=== PATIENT | male | born 1950 | race Caucasian/White ===

== ENCOUNTER 2016-02-29 16:34 | Emergency (ER) | payer MEDICARE, OTHER ==
--- NOTE | 2016-02-29 16:45 | Emergency Department Record ---
History of Present Illness - General Chief Complaint: Laceration(s) Stated Complaint: LACERATION TO THUMB ON RT HAND Time Seen by Provider: 02/29/16 16:41 Source: Patient Mode of Arrival: Ambulatory Limitations: No limitations - History of Present Illness Initial Commments: 66 yo male presents after injring his right thumb in a wood splitter. He got it caught between the splinter and a wood block. He is right handed. He is on Coumadin for a blood clot. His Tetanus is up to date. PCP is Dr. Meza in [place]. -: Minutes(s) Extremity Location: Right: Hand Place: Home Context: Accidental Associated Symptoms: None Treatments Prior to Arrival: Bandage - [place] Coma Scale Eye Response: (4) Open spontaneously Motor Response: (6) Obeys commands Verbal Response: (5) Oriented [place] Total: 15 - Related Data Previous Rx's Medication Instructions Recorded Warfarin Sodium [Coumadin] 4 mg PO QHS #30 tab 08/29/15 Cephalexin [Keflex] 500 mg PO TID #30 cap 02/29/16 Hydrocodone/Acetaminophen [[place] 1 tab PO Q8H PRN #15 tab 02/29/16 5mg/325mg] Allergies Allergy/AdvReac Type Severity Reaction Status Date / Time Penicillins Allergy Unknown "it ain't Verified 08/25/15 20:14 good." Review of Systems Constitutional: Denies: Chills, Fever, Malaise, Weakness Eyes: Denies: Eye discharge ENT: Denies: Congestion, Throat pain Respiratory: Denies: Cough Cardiovascular: Denies: Chest pain, Palpitations, Syncope Endocrine: Denies: Fatigue Gastrointestinal: Denies: Abdominal pain, Diarrhea, Nausea, Vomiting Genitourinary: Denies: Dysuria, Frequency, Hematuria Musculoskeletal: Reports: Arthralgia, Joint swelling Skin: Reports: Bruising. Denies: Change in color Neurological: Denies: Headache Psychiatric: Denies: Anxiety Hematological/Lymphatic: Reports: Blood Clots. Denies: Easy bleeding, Easy bruising Past Medical History - SOCIAL HISTORY Smoking Status: Current every day smoker Alcohol Use Comment: liquor and beer/daily - RESPIRATORY Hx Respiratory Disorders: Yes Hx Bronchitis: Yes (07/2015) Hx Pulmonary Embolism: Yes (08/2015) - CARDIOVASCULAR Hx Cardio Disorders: Yes Hx Hypertension: Yes (no meds) Hx Irregular Heartbeat: Yes (neg. cardiac work-up) - NEURO Hx Neuro Disorders: No - GI Hx GI Disorders: No Comment:: + occult blood - Hx Genitourinary Disorders: No - ENDOCRINE Hx Endocrine Disorders: No - MUSCULOSKELETAL Hx Musculoskeletal Disorders: Yes Hx Arthritis: Yes - PSYCH Hx Psych Problems: No - HEMATOLOGY/ONCOLOGY Hx Hematology/Oncology Disorders: No Family Medical History Hx Cancer: Brother/Sister Hx HTN: Father, Mother Hx Resp Disorders: Father Hx Stroke: Brother/Sister Physical Exam - General General Appearance: Alert, Oriented x3, Cooperative, No acute distress Limitations: No limitations - Head Head exam: Atraumatic, Normocephalic, Normal inspection - Eye Eye exam: Normal appearance. negative: Conjunctival injection, Scleral icterus - ENT ENT exam: Normal exam Ear exam: Normal external inspection Nasal Exam: Normal inspection Mouth exam: Normal external inspection Teeth exam: Normal inspection Throat exam: Normal inspection - Neck Neck exam: Normal inspection - Respiratory Respiratory exam: Normal lung sounds bilaterally. negative: Respiratory distress - Cardiovascular Cardiovascular Exam: Regular rate, Normal rhythm, Normal heart sounds - Rectal Rectal exam: Deferred - exam: Deferred - Extremities Extremities exam: Full ROM (No limitation of flexion or extension, full strength through ROM) Image of Finger Tip: 1 - 12mm laceration, no bone, tendon, of FB visible 2 - 2.5cm laceration in eliptical shape, no bone, FB or visible tendon. - Back Back exam: Reports: Normal inspection - Neurological Neurological exam: Alert, Normal gait, Oriented X3 - Psychiatric Psychiatric exam: Normal affect, Normal mood. negative: Agitated, Anxious - Skin Skin exam: Dry, Intact, Normal color, Warm Course - Reevaluation(s) Reevaluation #1: The thumb was cleaned and dressed XR ordered Digital Block with Lidocaine 1% plain with Bupivacaine 50:50 mix 4ml. 02/29/16 16:50 Reevaluation #2: I SW DR Mai of [facility] We discussed the wound and Fx He recommends thorough cleaning, closure and follow up Thursday in the office 02/29/16 17:12 Reevaluation #3: The wounds again were copiously irrigated with pressure NS after a Betadine Prep No tendon, bone or FB were visible in a bloodless field 12mm linear laceration was closed with 7 4-0 Ethilon suture with good would approximation The eliptical 2.5 cm laceration was closed with 9 4-0 Ethilon suture with good wound approximation We again discussed the increased risks of infection and poor healing of an injury of this type He is to call Thursday for the first available appointment with Dr Ferris He will be on Keflex He is to take his XR to his visit 02/29/16 17:47 Reevaluation #4: INR is 2.09 02/29/16 17:54 Medical Decision Making - Lab Data Result diagrams: 02/29/16 16:42 02/29/16 16:42 Disposition Disposition: Discharge Clinical Impression: Laceration of thumb Qualifiers: Encounter type: initial encounter Laterality: right Qualified Code(s): S61.011A - Laceration without foreign body of right thumb without damage to nail , initial encounter Thumb fracture Qualifiers: Encounter type: initial encounter Fracture type: open Phalanx: proximal Fracture alignment: nondisplaced Laterality: right Qualified Code(s): S62.514B - Nondisplaced fracture of proximal phalanx of right thumb, initial encounter for open fracture Disposition: Home, Self-Care Condition: (1) Good Instructions: Laceration (ED) Additional Instructions: Return immediately if you have uncontrolled pain, pus, fever or any new concerns Call Dr Ferris on Thursday at [phone] [address] [place] [address] You will need to recheck your INR while on Coumadin first of the week Prescriptions: Cephalexin [Keflex] 500 mg PO TID #30 cap Hydrocodone/Acetaminophen [[place] 5mg/325mg] 1 tab PO Q8H PRN #15 tab PRN Reason: Pain - General Forms: Patient Portal Access Time of Disposition: 17:52
[2016-02-29 17:20] LABS: BASO % 0.7 % (0-6); EOS % 9.5 % (0-6); HEMATOCRIT 41.2 % (42.0-52.0); HEMOGLOBIN 14.4 gm/dl (14.0-18.0); LYMPH % 29.5 % (16-45); MEAN PLATELET VOLUME 9.7 fl (7.4-10.4); MONO % 10.3 % (0-9); PLATELET COUNT 212 K/uL (130-400); RED CELL DISTRIBUTION WIDTH 13.6 % (11.5-14.5); WHITE BLOOD COUNT W/O DIFF 7.6 K/uL (4.2-12.2)
[2016-02-29 17:31] LABS: ANION GAP 17.5 (7-16); BLOOD UREA NITROGEN 13 mg/dL (9-20); CARBON DIOXIDE 21.5 mmol/L (22-30); CREATININE 0.9 mg/dL (0.66-1.25); EST GLOMERULAR FILTRATION RATE > 60 ml/min; GLUCOSE,RANDOM 91 mg/dL (70-110); INR 2.09; PROTHROMBIN TIME (PATIENT) 23.6 SECONDS (9.5-12.1)
[2016-02-29] MEDS: CEPHALEXIN 500 MG CAPSULE PO STA (18:02)
--- NOTE | 2016-03-03 11:00 | RADIOLOGY REPORT ---
EXAM: RIGHT THUMB, FOUR VIEWS HISTORY: TRAUMA, STUCK RIGHT THUMB BETWEEN WOOD AND LOG SPLITTER. RIGHT THUMB PAIN. TECHNIQUE: Four views of the right thumb were obtained. Comparison: None. Encounter: Initial. FINDINGS: Acute nondisplaced fracture involving the proximal aspect of the right first distal phalanx. No radiodense foreign body. IMPRESSION: ACUTE NONDISPLACED TRANSVERSE FRACTURE OF THE PROXIMAL RIGHT FIRST PROXIMAL PHALANX. JOB NUMBER: [id number] MTDD
== END 2016-02-29 18:09 | disposition home or self-care (01) ==
LOC: ER 16:34
DX: S61.011A Laceration without foreign body of right thumb without damage to nail, initial encounter (principal); S62.514A Nondisplaced fracture of proximal phalanx of right thumb, initial encounter for closed fracture; W31.89XA Contact with other specified machinery, initial encounter; Y93.H9 Activity, other involving exterior property and land maintenance, building and construction; Y92.009 Unspecified place in unspecified non-institutional (private) residence as the place of occurrence of the external cause; I10 Essential (primary) hypertension; F17.210 Nicotine dependence, cigarettes, uncomplicated; Z86.711 Personal history of pulmonary embolism; Z79.01 Long term (current) use of anticoagulants
CPT/HCPCS: 12002; 80048; 85025; 85610; 99283; 99284

== ENCOUNTER 2017-07-29 23:39 | Emergency (ER) | payer MEDICARE, OTHER ==
[2017-07-30 00:06] LABS: BASO % 0.8 % (0-6); EOS % 9.6 % (0-6); GRAN % 31.5 % (47-80); HEMATOCRIT 43.9 % (42.0-52.0); LYMPH % 45.2 % (16-45); MEAN CELL VOLUME 102.6 fl (81-97); MEAN CORPUSCULAR HGB CONC 34.2 g/dl (32-36); MEAN PLATELET VOLUME 9.4 fl (7.4-10.4); MONO % 12.9 % (0-9); PLATELET COUNT 222 K/uL (130-400); RED BLOOD COUNT 4.28 M/uL (4.40-5.70); RED CELL DISTRIBUTION WIDTH 14.8 % (11.5-14.5); WHITE BLOOD COUNT W/O DIFF 6.1 K/uL (4.2-12.2)
--- NOTE | 2017-07-30 00:08 | Emergency Department Record ---
History of Present Illness - General Chief complaint: Lower Extremity Pain Stated complaint: RIGHT SIDE NUMBNESS Time Seen by Provider: 07/29/17 23:47 Source: Patient, Family Mode of Arrival: Ambulatory Limitations: No limitations - History of Present Illness Initial comments: pt came in c/o r arm and leg numbness for an unclear amount of time but probably more then 4-6 hours. pt had a similar episode a few weeks ago that spontaneously resolved. he denies other symptoms. his states he was dragging his foot with the episode a few weeks ago. MD Complaint: Other Onset/Timin -: Hour(s) Location: Right Consistency: Constant Improves with: Nothing Worsens with: Nothing Associated Symptoms: Denies other symptoms - Related Data Previous Rx's Medication Instructions Recorded Warfarin Sodium [Coumadin] 4 mg PO QHS #30 tab 08/29/15 Allergies Allergy/AdvReac Type Severity Reaction Status Date / Time Penicillins Allergy Unknown "it ain't Verified 08/25/15 20:14 good." Travel Screening - Travel/Exposure Within Last 30 Days Have you traveled within the last 30 days?: No - Travel/Exposure Within Last Year Have you traveled outside the [place] in the last year?: No - Additonal Travel Details Have you been exposed to anyone with a communicable illness?: No - Travel Symptoms Symptom Screening: None Review of Systems Reviewed: No additional complaints except as noted below Constitutional: Reports: As per HPI. Denies: Chills, Fever, Malaise, Night sweats, Weakness, Weight change Eyes: Reports: As per HPI. Denies: Eye discharge, Eye pain, Photophobia, Vision change ENT: Reports: As per HPI. Denies: Congestion, Dental pain, Ear pain, Epistaxis , Hearing loss, Throat pain Respiratory: Reports: As per HPI. Denies: Cough, Dyspnea, Hemoptysis, Stridor, Wheezes Cardiovascular: Reports: As per HPI. Denies: Arrhythmia, Chest pain, Dyspnea on exertion, Edema, Murmurs, Orthopnea, Palpitations, Paroxysmal nocturnal dyspnea, Rheumatic Fever, Syncope Endocrine: Reports: As per HPI. Denies: Fatigue, Heat or cold intolerance, Polydipsia, Polyuria Gastrointestinal: Reports: As per HPI. Denies: Abdominal pain, Constipation, Diarrhea, Hematemesis, Hematochezia, Melena, Nausea, Vomiting Genitourinary: Reports: As per HPI. Denies: Dysuria, Frequency, Hematuria, Incontinence, Retention, Testicular pain, Testicular mass, Urgency Musculoskeletal: Reports: As per HPI. Denies: Arthralgia, Back pain, Gout, Joint swelling, Myalgia, Neck pain Skin: Reports: As per HPI. Denies: Bruising, Change in color, Change in hair/ nails, Lesions, Pruritus, Rash Neurological: Reports: As per HPI, Abnormal gait, Numbness, Paresthesias, Tingling. Denies: Confusion, Headache, Seizure, Tremors, Vertigo, Weakness Psychiatric: Reports: As per HPI. Denies: Anxiety, Auditory hallucinations, Depression, Homicidal thoughts, Suicidal thoughts, Visual hallucinations Hematological/Lymphatic: Reports: As per HPI. Denies: Anemia, Blood Clots, Easy bleeding, Easy bruising, Swollen glands Past Medical History - SOCIAL HISTORY Smoking Status: Current every day smoker Alcohol Use: Heavy Alcohol Use Comment: pint liquor/day Drug Use: None - RESPIRATORY Hx Respiratory Disorders: Yes Hx Bronchitis: Yes (07/2015) Hx Pulmonary Embolism: Yes (08/2015) - CARDIOVASCULAR Hx Cardio Disorders: Yes Hx Hypertension: Yes (no meds) Hx Irregular Heartbeat: Yes (neg. cardiac work-up) Comment:: takes coumadin for PE hx - NEURO Hx Neuro Disorders: No - GI Hx GI Disorders: No Comment:: + occult blood - Hx Genitourinary Disorders: No - ENDOCRINE Hx Endocrine Disorders: No - MUSCULOSKELETAL Hx Musculoskeletal Disorders: Yes Hx Arthritis: Yes - PSYCH Hx Psych Problems: No - HEMATOLOGY/ONCOLOGY Hx Hematology/Oncology Disorders: No Family Medical History Any Significant Family History?: Yes Hx Cancer: Brother/Sister Hx HTN: Father, Mother Hx Resp Disorders: Father Hx Stroke: Brother/Sister Physical Exam - General General Appearance: Alert, Oriented x3, Cooperative, Mild distress - Head Head exam: Normal inspection - Eye Eye exam: Normal appearance, PERRL, EOMI Pupils: Normal accommodation - ENT ENT exam: Normal exam, Mucous membranes moist, Normal external ear exam, Normal orophraynx Ear exam: Normal external inspection. negative: External canal tenderness Nasal Exam: Normal inspection. negative: Discharge, Sinus tenderness Mouth exam: Normal external inspection, Tongue normal Teeth exam: Normal inspection. negative: Dental caries Throat exam: Normal inspection. negative: Tonsillar erythema, Tonsillar exudate - Neck Neck exam: Normal inspection, Full ROM. negative: Tenderness - Respiratory Respiratory exam: Normal lung sounds bilaterally. negative: Respiratory distress - Cardiovascular Cardiovascular Exam: Normal rhythm, Normal heart sounds, Tachycardia - GI/Abdominal GI/Abdominal exam: Soft, Normal bowel sounds. negative: Tenderness - Rectal Rectal exam: Deferred - exam: Deferred - Extremities Extremities exam: Normal inspection, Full ROM, Normal capillary refill, Tenderness (r foot w drainage) - Back Back exam: Reports: Normal inspection, Full ROM. Denies: Muscle spasm, Rash noted, Tenderness - Neurological Neurological exam: Abnormal gait, Alert, CN II-XII intact, Motor sensory deficit , Oriented X3, Other (numbness of right arm and leg) - Psychiatric Psychiatric exam: Normal affect, Normal mood - Skin Skin exam: Dry, Intact, Normal color, Warm Course Vital Signs 07/29/17 23:44 Temperature 98 F Pulse Rate [ 107 H Pulse Ox Probe] Respiratory 24 Rate Blood Pressure 115/91 [Left Arm] Pulse Ox 93 L - Reevaluation(s) Reevaluation #1: 07/30/17 00:59 pt is not a good tpa candidate as time of onstart is unclear, pt has high inr and high alcohol and is only stroke scale of 1-2 Medical Decision Making - Lab Data Result diagrams: 07/30/17 00:04 07/30/17 00:04 Disposition Disposition: Transfer Clinical Impression: Stroke determined by clinical assessment Disposition: Acute Care Hospital Transfer Transfer To: [facility] Reason For Transfer: stroke team Accepting Physician: tammy lyman Time Discussed w/Accepting Physician: 00:58 Condition: (3) Guarded Forms: Patient Portal Access Quality - Quality Measures Quality Measures: N/A - Blood Pressure Screening Does Patient Have Any of the Following: No Blood Pressure Classification: Pre-Hypertensive BP Reading Systolic Measurement: 129 Diastolic Measurement: 82 Screening for High Blood Pressure: < Pre-Hypertensive BP, F/U Documented > [ G8950] Pre-Hypertensive Follow-up Interventions: Referral to alternative/primary care provider. Stroke Assessment - NIH Stroke Scale 1a. Level of Consciousness: (0) Alert 1b. LOC Questions: (0) Answers Correctly 1c. LOC Commands: (0) Performs Tasks Correctly 2. Best Gaze: (0) Normal 3. Visual: (0) No Visual Loss 4. Facial Palsy: (0) Normal Symmetrical Movement 5a. Motor Arm Left: (0) No Drift 5b. Motor Arm Right: (0) No Drift 6a. Motor Leg Left: (0) No Drift 6b. Motor Leg Right: (0) No Drift 7. Limb Ataxia: (1) Present 1 Limb 8. Sensory: (1) Mild/Moderate Sensory Loss 9. Best Language: (0) No Aphasia 10. Dysarthria: (0) Normal
[2017-07-30 00:18] LABS: BLOOD UREA NITROGEN 9 mg/dL (8-23); EST GLOMERULAR FILTRATION RATE > 60 mL/min
[2017-07-30 00:19] LABS: TOTAL PROTEIN 6.7 g/dL (6.6-8.7)
[2017-07-30 00:19] LABS: INR 3.9; PARTIAL THROMBOPLASTIN TIME 49.4 SECONDS (24.5-39.1)
[2017-07-30 00:20] LABS: PROTHROMBIN TIME (PATIENT) 42.2 SECONDS (9.5-12.1)
[2017-07-30 00:20] LABS: ALCOHOL 0.319 g/dL (0-0.010)
[2017-07-30 00:21] LABS: GLUCOSE,RANDOM 118 mg/dL (74-109)
[2017-07-30 00:24] LABS: ALB/GLOB RATIO 1.5 (1.1-1.8); ALKALINE PHOSPHATASE 64 U/L (40-129); ALT/SGPT 62 U/L (<41); AST/SGOT 96 U/L (10.0-50.0)
[2017-07-30] MEDS ORDERED: MVI, ADULT NO.4 WITH VIT K 10 ML, THIAMINE HCL IV 100 MG in 0.9 % SODIUM CHLORIDE 1000M... IV SCH ×3 (01:00)
--- NOTE | 2017-07-31 09:41 | RADIOLOGY REPORT ---
EXAM: LEFT FOOT HISTORY: PAIN. TECHNIQUE: Four views of the left foot were obtained. Comparison: None. FINDINGS: Mild degenerative change of the great toe. Tiny calcaneal spurs. Negative for fracture or dislocation. The soft tissues are unremarkable. IMPRESSION: NO ACUTE OSSEOUS ABNORMALITY. JOB NUMBER: [id number] MTDD
--- NOTE | 2017-07-31 09:49 | CT SCAN REPORT ---
EXAM: CT OF THE BRAIN HISTORY: RIGHT SIDED NUMBNESS. TECHNIQUE: CT of the brain without contrast was obtained. Comparison: None. FINDINGS: The globes are intact. The paranasal sinuses and mastoid air cells are unremarkable. There is no displaced or depressed skull fracture. There is no intra or extraaxial hemorrhage. CT is limited for the evaluation of acute infarct. There is no CT evidence for large or territorial acute infarct. No mass or midline shift. The mane white matter differentiation is preserved. Mild diffuse atrophy. IMPRESSION: MILD DIFFUSE ATROPHY. NO ACUTE INTRACRANIAL ABNORMALITY. JOB NUMBER: [id number] MTDD
== END 2017-07-30 01:26 | disposition short-term general hospital (02) ==
LOC: ER 23:39
DX: I63.9 Cerebral infarction, unspecified (principal); R20.0 Anesthesia of skin; R26.89 Other abnormalities of gait and mobility; R79.1 Abnormal coagulation profile; I10 Essential (primary) hypertension; F10.10 Alcohol abuse, uncomplicated; Y90.8 Blood alcohol level of 240 mg/100 ml or more; Z79.01 Long term (current) use of anticoagulants; F17.210 Nicotine dependence, cigarettes, uncomplicated
CPT/HCPCS: 99285 ×2; 96374; 85025; 85730; 85610; 80053; 73630; 70450; 93005; 93010; G0480; 80320; J3411; J7030

== ENCOUNTER 2018-01-03 20:35 | Inpatient (IN) | payer MEDICARE, OTHER ==
[2018-01-03] MEDS ORDERED: METHYLPREDNISOLONE PF 125MG/VIAL IVP ONE (20:43)
[2018-01-03] MEDS ORDERED: IPRATROPIUM/ALBUTEROL (0.5MG/3MG) NEB INH ONE ×2 (20:43→21:27)
--- NOTE | 2018-01-03 20:50 | Emergency Department Record ---
History of Present Illness - General Chief Complaint: Abdominal Pain Stated Complaint: MARIELLA/ABDOMINAL PAIN Source: Patient, Family Mode of Arrival: Ambulatory Limitations: No limitations - History of Present Illness Initial Comments: 67 yo male presents with about one month of shortness of breath. He has COPD and continues to smoke. He is not always compliant with his medications. He is not on any home oxygen. He has daily sputum production that is somewhat discolored. No chest pain. He has felt a bloated feeling in the abdomen for about a week. He does have a history of daily alcohol use as well. He is on Coumadin for prior PE. He is 84-86% on room air on arrival in the ED. Dr Meza is the patient's PCP MD Complaint: Abdominal pain, Other -: Week(s) Location: Diffuse Migration to: No migration Severity: Moderate Quality: Fullness Consistency: Constant Improves With: Nothing Worsens With: Nothing Associated Symptoms: Other (short or breath) - Related Data Home Medications Medication Instructions Recorded Confirmed Last Taken Umeclidinium Brm/Vilanterol Tr 1 puff INH DAILY 01/03/18 01/03/18 Unknown [Anoro Ellipta 62.5-25 Mcg INH] Previous Rx's Medication Instructions Recorded Warfarin Sodium [Coumadin] 4 mg PO QHS #30 tab 08/29/15 Allergies Allergy/AdvReac Type Severity Reaction Status Date / Time Penicillins Allergy Unknown "it ain't Verified 08/25/15 20:14 good." Review of Systems Constitutional: Reports: Malaise, Weakness. Denies: Chills, Fever Eyes: Denies: Eye discharge, Eye pain, Photophobia, Vision change ENT: Reports: Congestion Respiratory: Reports: Cough, Dyspnea, Wheezes. Denies: Hemoptysis Cardiovascular: Denies: Chest pain, Palpitations, Syncope Endocrine: Reports: Fatigue. Denies: Polydipsia, Polyuria Gastrointestinal: Reports: Abdominal pain, Nausea. Denies: Constipation, Diarrhea, Vomiting Genitourinary: Denies: Dysuria, Frequency, Hematuria Musculoskeletal: Denies: Arthralgia, Back pain, Joint swelling, Myalgia, Neck pain, Other Skin: Denies: Bruising, Change in color, Rash Neurological: Denies: Headache, Numbness, Weakness Psychiatric: Denies: Anxiety Hematological/Lymphatic: Reports: Blood Clots. Denies: Easy bleeding, Easy bruising, Swollen glands Past Medical History - SOCIAL HISTORY Smoking Status: Current every day smoker Alcohol Use Comment: pint liquor/day Drug Use: None - RESPIRATORY Hx Respiratory Disorders: Yes Hx Bronchitis: Yes (07/2015) Hx Pulmonary Embolism: Yes (08/2015) - CARDIOVASCULAR Hx Cardio Disorders: Yes Hx Hypertension: Yes (no meds) Hx Irregular Heartbeat: Yes (neg. cardiac work-up) Comment:: takes coumadin for PE hx - NEURO Hx Neuro Disorders: No - GI Hx GI Disorders: No Comment:: + occult blood - Hx Genitourinary Disorders: No - ENDOCRINE Hx Endocrine Disorders: No - MUSCULOSKELETAL Hx Musculoskeletal Disorders: Yes Hx Arthritis: Yes - PSYCH Hx Psych Problems: No - HEMATOLOGY/ONCOLOGY Hx Hematology/Oncology Disorders: No Family Medical History Hx Cancer: Brother/Sister Hx HTN: Father, Mother Hx Resp Disorders: Father Hx Stroke: Brother/Sister Physical Exam - General General Appearance: Alert, Oriented x3, Cooperative, No acute distress Limitations: No limitations - Head Head exam: Atraumatic, Normal inspection - Eye Eye exam: Normal appearance, PERRL. negative: Conjunctival injection, Periorbital swelling, Scleral icterus - ENT ENT exam: Normal exam, Mucous membranes moist Ear exam: Normal external inspection Nasal Exam: Normal inspection Mouth exam: Normal external inspection - Neck Neck exam: Normal inspection - Respiratory Respiratory exam: Accessory muscle use, Prolonged expiratory, Rhonchi, Wheezes. negative: Normal lung sounds bilaterally, Respiratory distress - Cardiovascular Cardiovascular Exam: Regular rate, Normal rhythm, Normal heart sounds Peripheral Pulses: 2+: Radial (R), Radial (L) - GI/Abdominal GI/Abdominal exam: Tenderness (mildly tender mid. The abdomen is very soft). negative: Soft, Distended, Guarding, Rebound, Rigid - Rectal Rectal exam: Deferred - exam: Deferred - Extremities Extremities exam: Normal inspection - Back Back exam: Denies: CVA tenderness (R), CVA tenderness (L) - Neurological Neurological exam: Alert, Oriented X3 - Psychiatric Psychiatric exam: Normal affect, Normal mood - Skin Skin exam: Dry, Intact, Normal color, Warm Course - Reevaluation(s) Reevaluation #1: The initial oxygen saturations were low in the mid 80's. His improved on supplemental oxygen and Duoneb. 01/03/18 20:56 01/03/18 21:00 EKG 2051 NSR rate 89 Intervals normal [place] left ST no acute changes from 07/30/17 01/03/18 21:21 The CMP was reviewed Mild increase in LFT's likely from alcohol use chronically Lipase 63 Troponin is normal CXR is consistent with hyperinflation. No infiltrate or other acute process. 01/03/18 21:41 I discussed the admission with Nadege Zavala regarding admission for COPD with hypoxia Regarding his abdominal pain and ultrasound was ordered for the AM Medical Decision Making - Lab Data Result diagrams: 01/03/18 20:50 01/03/18 20:50 Disposition Disposition: Admit Clinical Impression: COPD with exacerbation, Hypoxia, Abdominal pain Disposition: Still a Patient at [facility] Decision to Admit: Admit from ER Decision to Admit Date: 01/03/18 Decision to Admit Time: 21:31 Condition: (2) Stable Time of Disposition: 21:32 Quality - Quality Measures Quality Measures: N/A - Blood Pressure Screening Does Patient Have Any of the Following: No Blood Pressure Classification: Pre-Hypertensive BP Reading Systolic Measurement: 135 Diastolic Measurement: 82 Screening for High Blood Pressure: < Pre-Hypertensive BP, F/U Documented > [ G8950] Pre-Hypertensive Follow-up Interventions: Referral to alternative/primary care provider.
[2018-01-03 20:58] LABS: HEMOGLOBIN 15.4 gm/dl (14.0-18.0); MEAN CELL VOLUME 105.9 fl (81-97); MEAN CORPUSCULAR HEMOGLOBIN 36.2 pg (27-33); MEAN CORPUSCULAR HGB CONC 34.2 g/dl (32-36); MEAN PLATELET VOLUME 10.5 fl (7.4-10.4); PLATELET COUNT 240 K/uL (130-400); RED BLOOD COUNT 4.25 M/uL (4.40-5.70); RED CELL DISTRIBUTION WIDTH 16.2 % (11.5-14.5); WHITE BLOOD COUNT W/O DIFF 6.1 K/uL (4.2-12.2)
[2018-01-03 21:10] LABS: INR 1.2; PARTIAL THROMBOPLASTIN TIME 31.7 SECONDS (24.5-39.1)
[2018-01-03 21:11] LABS: BLOOD UREA NITROGEN 8 mg/dL (8-23); CREATININE 0.7 mg/dL (0.7-1.2); EST GLOMERULAR FILTRATION RATE > 60 mL/min
[2018-01-03 21:12] LABS: TOTAL PROTEIN 7.4 g/dL (6.6-8.7)
[2018-01-03 21:14] LABS: GLUCOSE,RANDOM 142 mg/dL (74-109)
[2018-01-03 21:16] LABS: ALB/GLOB RATIO 1.4 (1.1-1.8); ALBUMIN 4.3 g/dL (4.0-5.0); ALKALINE PHOSPHATASE 87 U/L (40-129); ALT/SGPT 146 U/L (<41); AST/SGOT 176 U/L (10.0-50.0)
[2018-01-03 21:17] LABS: LIPASE 63 U/L (13-60)
[2018-01-03] MEDS ORDERED: MORPHINE SULFATE 10 MG/ML VIAL IVP ONE ×2 (21:43→22:46)
[2018-01-03] MEDS ORDERED: MAGNESIUM HYDROXIDE/AL HYDROX 30 ML, LIDOCAINE VISC 2% 15ML 15 ML PO ONE ×2 (22:46)
[2018-01-03] MEDS ORDERED: AZITHROMYCIN 500 MG TABLET PO SCH (23:45)
[2018-01-03] MEDS ORDERED: ALBUTEROL SULFATE (0.083%) 2.5 MG/3 ML NEB INH SCH (23:45)
[2018-01-03] MEDS ORDERED: LORAZEPAM 2 MG/ML VIAL IV PRN (23:45)
[2018-01-03] MEDS ORDERED: WARFARIN SODIUM 4 MG PO SCH (23:45)
[2018-01-03] MEDS: METHYLPREDNISOLONE PF 125MG/VIAL IVP SCH (23:53)
[2018-01-04] MEDS ORDERED: CEFTRIAXONE SODIUM 1 GM in 0.9 % SODIUM CHLORIDE 100ML 100 ML IVPB SCH ×2
[2018-01-04] MEDS: IPRATROPIUM/ALBUTEROL (0.5MG/3MG) NEB INH SCH ×6 (05:58→21:52)
--- NOTE | 2018-01-04 07:25 | RADIOLOGY REPORT ---
EXAM: CHEST, TWO VIEWS HISTORY: PATIENT HAS SHORTNESS OF BREATH. TECHNIQUE: Two view of the chest are provided along with the comparison study dated 05/20/16. FINDINGS: The cardiomediastinal silhouette is within normal limits for size and contour. The kvng appear unremarkable. There is no radiographic evidence of a focal infiltrate, pleural effusion, or pneumothorax. COPD changes are identified bilaterally. IMPRESSION: STABLE RADIOGRAPHIC APPEARANCE OF THE CHEST WITH RESPECT TO THE PRIOR EXAMINATION. JOB NUMBER: [id number] [facility]
[2018-01-04] MEDS: METHYLPREDNISOLONE PF 125MG/VIAL IVP SCH ×2 (07:48→15:50)
[2018-01-04] MEDS ORDERED: LORAZEPAM 2 MG/ML VIAL IV PRN ×2 (08:43→12:35)
[2018-01-04 08:55] LABS: INR 1.3; PROTHROMBIN TIME (PATIENT) 13.4 SECONDS (9.5-12.1)
[2018-01-04] MEDS ORDERED: PNEUM 23-VAL ADULT IM ONE (10:00)
[2018-01-04] MEDS ORDERED: PNEUM 13-VAL/PF 0.5 ML IM ONE (10:00)
[2018-01-04] MEDS: ANORO (UMECLIDINIUM & VILANTEROL) 62.5MCG/25MCG INH INH SCH (10:10)
[2018-01-04] MEDS: NICOTINE 21 MG/24 HOUR PATCH TD SCH ×2 (10:36)
[2018-01-04] MEDS ORDERED: LORAZEPAM 2 MG/ML VIAL IV ONE (12:26)
--- NOTE | 2018-01-04 12:58 | ULTRASOUND REPORT ---
EXAM: ULTRASOUND OF THE ABDOMEN HISTORY: ABDOMINAL PAIN. TECHNIQUE: Sonographic evaluation of the abdomen was performed using mane scale imaging. FINDINGS: There is fatty infiltration of the liver. No focal hepatic mass. There are polyps present within the gallbladder. The common bile duct measures 6 mm which is at the upper limits of normal. The kidneys are normal in size with no hydronephrosis or nephrolithiasis. The abdominal aorta and inferior vena cava are patent. The pancreas and spleen appear normal. IMPRESSION: 1. MULTIPLE POLYPS ARE PRESENT WITHIN THE GALLBLADDER. THE COMMON BILE DUCT MEASURES 6 MM WHICH IS AT THE UPPER LIMITS OF NORMAL. 2. FATTY INFILTRATION OF THE LIVER. NO FOCAL HEPATIC MASS. JOB NUMBER: [id number] MTDD
[2018-01-04] MEDS: THIAMINE MONONITRATE 100 MG TABLET PO SCH (13:49)
[2018-01-04] MEDS: CHLORDIAZEPOXIDE 10 MG CAPSULE PO SCH ×2 (15:50→22:29)
[2018-01-04] MEDS: WARFARIN 1 MG TABLET PO SCH (15:51)
[2018-01-04] MEDS ORDERED: CEFTRIAXONE 1GM/50ML BAG 1 GM/50 ML BAG IVPB SCH (22:00)
[2018-01-04] MEDS ORDERED: AZITHROMYCIN 500 MG TABLET PO SCH (22:00)
[2018-01-05] MEDS: METHYLPREDNISOLONE PF 125MG/VIAL IVP SCH ×3 (02:21→15:53)
[2018-01-05] MEDS: IPRATROPIUM/ALBUTEROL (0.5MG/3MG) NEB INH SCH ×4 (07:07→18:04)
--- NOTE | 2018-01-05 07:20 | History and Physical Report ---
DATE OF ADMISSION: 01/03/2018 CHIEF COMPLAINT: Epigastric abdominal pain and dyspnea. HISTORY OF PRESENT ILLNESS: This 67-year-old male presented to the emergency department, evaluated by Dr. Ruiz. Initially he came in because of epigastric abdominal pain and his was concerned about his breathing which has progressively gotten worse over the last month. He is not on home oxygen but he is a heavy smoker. He smokes approximately 2 packs of cigarettes a day for the last 60 years. His pulse ox when he came into the emergency department was 84% to 86% on room air. Primary physician is Dr. Meza. He does cough up sputum in the morning which is discolored. He denied any chest pain, bloating of his abdomen, or vomiting or diarrhea. The pain was epigastric in nature. He does drink a half pint of whiskey a day. He buys approximately 10 half pints a week, according to his . He seemed to not want to talk about his alcohol use, so this history may not be accurate. PAST MEDICAL HISTORY: COPD, episodic atrial fibrillation on Coumadin therapy, essential hypertension, hematuria, pulmonary embolism in the right lung, previous history of a CVA; however, that was ruled out according to the patient. PAST SURGICAL HISTORY: Bilateral inguinal hernia repair, knee, as a child had surgery for an injury, and a finger laceration. ALLERGIES: PENICILLIN. MEDICATIONS: 1. Anoro Ellipta 62.5/25 one puff a day. 2. Coumadin 4 mg a day. FAMILY/PSYCHOSOCIAL HISTORY: Brother and sister had cancer. Father and mother had hypertension and respiratory disorders. Brother and sister also had a stroke. He also smokes cigars; 10 cigars a day. He has approximately a 50- to 98-[id number]-gref history of smoking. REVIEW OF SYSTEMS: HEENT: Slight congestion. Slight cough. No difficulty swallowing. No facial pain or difficulties with his vision. Cardiovascular: No chest pain, palpitations. He is short of breath with exertion. Respiratory: He has a smoking history, cough, congestion, and shortness of breath with exertion. Gastrointestinal: See Chief Complaint. He has epigastric abdominal pain which is much better today compared to being in the emergency department. He is going through withdrawal at this time. Genitourinary: No dysuria, hematuria, frequency, or burning on urination. Musculoskeletal: No joint or bone abnormalities. Neurological: No current signs of CVA, headache. Endocrine: No diabetes or thyroid disease. Integument: No skin rashes or ulcers of skin. PHYSICAL EXAMINATION: VITALS: Height 6 feet 2 inches, weight 205 pounds. Temperature currently today is 98.6, pulse 119, blood pressure 170/82, pulse ox 91% on 2L nasal cannula, respiratory rate 18. HEENT: Pupils are equal, round, and reactive to light and accommodation. Extraocular muscles are intact. Throat is clear. Nose is clear. Tympanic membranes are mane. NECK: Supple. No jugular venous distention. No hepatojugular reflux. No carotid bruits. Thyroid is smooth. CARDIOVASCULAR: Regular rate and rhythm without murmurs, clicks, rubs, or gallops. He is tachycardic, sinus rhythm. RESPIRATORY: Coarse bilaterally with wheezing. ABDOMEN: Soft, nontender. There is some epigastric pain on palpation. EXTREMITIES: No pitting edema. No cyanosis, no clubbing. Full range of motion. Peripheral pulses are good. BREASTS: Normal male breasts. RECTAL: Exam deferred. GENITALIA: Deferred. NEUROLOGIC: Cranial nerves II-XII intact. No gross defects. Sensation normal, strength normal. Deep tendon reflexes equal bilaterally with Babinski negative. MENTAL STATUS: Alert and oriented x3. IMPRESSION: 1. Epigastric abdominal pain. 2. Gastritis. 3. Chronic obstructive pulmonary disease exacerbation. 4. Hypoxia. Pulse ox running at 84% to 88% on room air. Never used home oxygen before. 5. Tobacco use disorder. 6. Alcohol abuse and use. 7. Withdrawal from alcohol. 8. Alcoholic hepatitis. Liver enzymes are elevated. PLAN: Ativan IV. Librium orally. Thiamine 100 mg daily. Breathing treatments. DuoNeb every 4 hours while awake. Albuterol q.4 h. p.r.n. Azithromycin 500 mg daily. Rocephin 1 g daily. Solu-Medrol 80 mg 3 times a day. We will start thiamine use 100 mg daily. MTDD
[2018-01-05] MEDS: NICOTINE 21 MG/24 HOUR PATCH TD SCH (08:43)
[2018-01-05] MEDS: ANORO (UMECLIDINIUM & VILANTEROL) 62.5MCG/25MCG INH INH SCH (09:22)
[2018-01-05] MEDS: THIAMINE MONONITRATE 100 MG TABLET PO SCH (09:35)
[2018-01-05] MEDS: CHLORDIAZEPOXIDE 10 MG CAPSULE PO SCH ×2 (09:36→15:53)
[2018-01-05 10:04] LABS: INR 1.5; PROTHROMBIN TIME (PATIENT) 15.1 SECONDS (9.5-12.1)
[2018-01-05 10:07] LABS: BLOOD UREA NITROGEN 13 mg/dL (8-23); CREATININE 0.6 mg/dL (0.7-1.2); EST GLOMERULAR FILTRATION RATE > 60 mL/min; GLUCOSE,RANDOM 246 mg/dL (74-109)
[2018-01-05 10:11] LABS: ALT/SGPT 98 U/L (<41); AST/SGOT 69 U/L (10.0-50.0); BILIRUBIN,DIRECT 0.2 mg/dL (0-0.3); BILIRUBIN,TOTAL 0.7 mg/dL (0.2-1.0)
[2018-01-05] MEDS ORDERED: ALBUTEROL SULFATE (0.083%) 2.5 MG/3 ML NEB INH PRN (13:30)
[2018-01-05] MEDS: WARFARIN 1 MG TABLET PO SCH (15:53)
[2018-01-05] MEDS ORDERED: PREDNISONE 20 MG TAB PO ONE (17:32)
[2018-01-05] MEDS ORDERED: ALBUTEROL HFA 8 GM INHALER INH ONE (17:59)
--- NOTE | 2018-01-05 17:59 | Discharge Note ---
VTE H&P Assessment - Risk for VTE Risk for VTE: Yes Risk Level: Moderate Risk Assessment Date: 01/03/18 Risk Assessment Time: 22:00 VTE Orders Placed or Will Be Placed: No VTE Reason for No Prophylaxis: Not Indicated (patient on coumadin) Discharge Medications - Discharge Medications Prescriptions: Azithromycin [Zithromax] 500 mg PO QHS #7 tab Albuterol Sulfate [Ventolin Hfa] 1 - 2 puff IH .EVERY 4-6 HOURS PRN #1 inhaler PRN Reason: Difficulty In Breathing Chlordiazepoxide HCl [Librium] 10 mg PO TID #12 cap Prednisone [Prednisone 10Mg] 10 mg PO ASDIR #30 tab Thiamine Mononitrate [Vitamin B-1] 100 mg PO DAILY #30 tablet Home Medications: Ambulatory Orders Warfarin Sodium [Coumadin] 4 mg PO QHS #30 tab 08/29/15 [Last Taken 02/29/16] Umeclidinium Brm/Vilanterol Tr [Anoro Ellipta 62.5-25 Mcg INH] 1 puff INH DAILY 01/03/18 [Last Taken Unknown] Albuterol Sulfate [Ventolin Hfa] 1 - 2 puff IH .EVERY 4-6 HOURS PRN #1 inhaler 01/05/18 [Last Taken Unknown] Azithromycin [Zithromax] 500 mg PO QHS #7 tab 01/05/18 [Last Taken Unknown] Chlordiazepoxide HCl [Librium] 10 mg PO TID #12 cap 01/05/18 [Last Taken Unknown ] Nicotine [Nicotine 21Mg] 1 patch TD 0900 patch 01/05/18 [Last Taken Unknown] Prednisone [Prednisone 10Mg] 10 mg PO ASDIR #30 tab 01/05/18 [Last Taken Unknown ] Thiamine Mononitrate [Vitamin B-1] 100 mg PO DAILY #30 tablet 01/05/18 [Last Taken Unknown] Discharge Note - Date Date of Discharge Note: 01/05/18 Disposition: Home, Self-Care Condition: (2) Stable Additional Instructions: Call [facility] at [phone] once home to schedule assessment for substance abuse services. stay off alcohol stop smoking cigarrettes and can use OTC nicotene patches step one to help with cravings follow up with [facility] in one week 01/12/2018 Prescriptions: Azithromycin [Zithromax] 500 mg PO QHS #7 tab Albuterol Sulfate [Ventolin Hfa] 1 - 2 puff IH .EVERY 4-6 HOURS PRN #1 inhaler PRN Reason: Difficulty In Breathing Prednisone [Prednisone 10Mg] 10 mg PO ASDIR #30 tab Thiamine Mononitrate [Vitamin B-1] 100 mg PO DAILY #30 tablet Referrals: Eevr Meza M.D., F.A.C.P. [Primary Care Provider] - Forms: Patient Portal Access Activity at Discharge: Increase Activity as Tolerated Diet at Discharge: Low Salt Diet
[2018-01-06] MEDS ORDERED: PREDNISONE 20 MG TAB PO SCH (08:00)
--- NOTE | 2018-01-06 09:11 | Discharge Summary ---
DATE: 01/05/18 DISCHARGE DIAGNOSES: 1. Epigastric abdominal pain. 2. Gastritis. 3. Chronic obstructive pulmonary disease with exacerbation. 4. Hypoxia requiring oxygen. Initial pulse ox 84% 86% on room air. 5. Tobacco use disorder. 6. Alcohol abuse. 7. Withdrawal from alcohol. 8. Alcoholic hepatitis. Liver enzymes are elevated. ATTENDING PHYSICIAN: Samir Myers DO REASON FOR HOSPITALIZATION: Epigastric abdominal pain, dyspnea, and hypoxia. HISTORY OF PRESENT ILLNESS: This 67-year-old male presented to the emergency department, evaluated by Dr. Ruiz initially because of epigastric abdominal pain. His was concerned that his breathing was getting worse over the last month. He is not on home oxygen but he is a heavy smoker. He smokes approximately 2 packs of cigarettes a day. He has at least a 48-[id number] history of cigarettes. His pulse ox in the emergency department 84% to 86%. Primary physician is Dr. Meza. He does cough up sputum in the morning which is discolored. He denied any chest pain. He denied any bloating of the abdomen. He denies any diarrhea or vomiting. The pain was in the epigastric area in his belly, and he drinks half a pint of whiskey a day. He buys about 10 half pints a week according to his . He seemed to not want to talk about his alcohol use, so his history may not be accurate. The patient is on Coumadin for episodic atrial fibrillation. He is currently in normal sinus rhythm. No acute changes. He also has alcoholic hepatitis. Liver enzymes up. SIGNIFICANT FINDINGS: EKG showing normal sinus rhythm. No acute changes. Chest x-ray with stable radiographic appearance of the chest with respect to the prior examination compared to 05/20/2016. COPD changes are present bilaterally. The abdominal ultrasound revealing multiple tiny polyps in the gallbladder. Discussed the case with Dr. Crocker. No surgery indicated. WBC 6100, hemoglobin 15.4, remained stable, dropped down to 14.9 on 01/05/2018. Platelet count is 240,000. INR is 1.5 on discharge. Potassium 4.4 on discharge. BUN 13, creatinine 0.6. His sugar went up with the IV Solu-Medrol to 246. His AST was 69 on discharge and ALT 98 on discharge. Initiate they were 176 and 146, respectively. Troponin x2 time points was negative. Lipase slightly elevated at 63 and 97. THERAPY PROVIDED: The patient was given IV Solu-Medrol and switched to oral prednisone, also started on Rocephin 1 g and azithromycin orally. Fluids cautiously along with breathing treatments and oxygen therapy. On discharge, his pulse ox did not qualify for oxygen therapy. With ambulation on room air, it is 90%. HOSPITAL COURSE: The patient did remarkably well. I advised him not to start smoking cigarettes and not to go back to drinking alcohol. Will give him outpatient information for substance abuse therapy. He says he is planning to stop. CONDITION ON DISCHARGE: Much improved. DISCHARGE INSTRUCTIONS: Follow up with Dr. Meza or [facility] in 7 days. Stop smoking. He can use [id number] nicotine patches step 1 to help with the craving. Stop the alcohol. Follow up with [facility], , to schedule a substance abuse service appointment and assessment. Low-salt diet. Increase activity as tolerated. Continue his home medications. DISCHARGE MEDICATION: 1. Azithromycin 500 mg for 7 days daily. 2. Ventolin inhaler 1-2 puffs q.4 h., dispense 1 inhaler from the hospital and 1 inhaler by prescription. 3. Prednisone tapering dose, 4 pills a day for 3 days, then 3 pills a day for 3 days, then 2 pills a day for 3 days, then 1 pill a day for 3 days. 4. Thiamine 100 mg daily. 5. Coumadin 4 mg at h.s. 6. Anoro Ellipta 1 puff daily. 7. Librium. We are also going to start him on that because I am concerned he will have some issues with more withdrawal. He was tremulous and he had hypertension and tachycardia from his withdrawal. Librium will be 10 mg 3 times a day for 2 days and then 10 mg b.i.d. for 2 days and then once a day for 2 days. CC: JM MEZA MD, FACP MTDD
== END 2018-01-05 18:40 | disposition home or self-care (01) | DRG 192 ==
LOC: ER 20:35 → MEDSURG 22:44
PROVIDERS: ADMIT Internal Medicine; ATTEND Emergency Medicine
DX: J44.9 Chronic obstructive pulmonary disease, unspecified (principal); R09.02 Hypoxemia; R06.00 Dyspnea, unspecified; F10.20 Alcohol dependence, uncomplicated; I48.91 Unspecified atrial fibrillation; I10 Essential (primary) hypertension; Z79.01 Long term (current) use of anticoagulants; M19.90 Unspecified osteoarthritis, unspecified site; Z86.711 Personal history of pulmonary embolism; F17.210 Nicotine dependence, cigarettes, uncomplicated; K70.10 Alcoholic hepatitis without ascites
CPT/HCPCS: 71046; 76700; 80048; 80053; 80076; 83690; 84450; 84460; 84484; 85018; 85027; 85610; 85730; 90670; 90686; 93005; 93010; 94618; 94640; 94761; 96374; 96375; 96376; 99223; 99232; 99239; 99285; J0696; J2270; J2930; J7613